=== PATIENT | male | born 1975 | race Caucasian/White ===

== ENCOUNTER → 2019-04-13 12:42 | Outpatient (CLI) | payer BC, SELFPAY ==
[2016-12-29 03:25] VITALS: BMI 33.7
[2019-04-13 13:30] LABS: Amphetamine Urine VISTA NEGATIVE (<1000 ng/mL); Barbiturate Urine VISTA NEGATIVE (< 200 ng/mL); Benzodiazepine Urine VISTA NEGATIVE (< 200 ng/mL); Cocaine Urine VISTA NEGATIVE (< 300 ng/mL); Ecstacy Urine VISTA NEGATIVE (< 500 ng/mL); Methadone Urine VISTA NEGATIVE (< 300 ng/mL); PCP Urine VISTA NEGATIVE (< 25 ng/mL); THC Urine VISTA NEGATIVE (< 50 ng/mL); Vista UDS pH Range 5
== END ==
LOC: LAB 12:45
PROVIDERS: PCP Family Medicine; Referring Provider Anesthesiology Pain Medicine; Visit Provider Anesthesiology Pain Medicine
DX: F11.20 Opioid dependence, uncomplicated (principal)
CPT/HCPCS: 80307

== ENCOUNTER → 2019-04-20 | Outpatient (CLI) | payer BC, SELFPAY ==
--- NOTE | 2019-04-20 09:14 | MRI_ITS ---
STUDY: MRI LUMBAR SPINE WITHOUT CONTRAST REASON FOR EXAM: Male, 43 years old. LOWER BACK PAIN,rt leg numbness, hx 2 prior surgeries TECHNIQUE: Standardized fat and water weighted pulse sequences were obtained in the sagittal and axial planes. COMPARISON: X-ray dated January 27, [address] scan dated August 11, 2013 of the abdomen FINDINGS: Lumbar straightening. No significant scoliosis. Conus medullaris terminates normally at the T12-L1 level. Last intervertebral disc will be labeled L5-S1. No acute fracture. No dislocation. No bone destruction. Normal paraspinal muscles. Normal aorta. Normal retroperitoneum. Sacrum intact. Postsurgical scarring. T12-L1: Normal endplates. Normal disc height, hydration and morphology. Normal bilateral facet joints. Normal central canal and bilateral lateral recesses. Normal bilateral intervertebral neural foramina. L1-2: Normal endplates. Normal disc height, hydration and morphology. Normal bilateral facet joints. Normal central canal and bilateral lateral recesses. Normal bilateral intervertebral neural foramina. L2-3: Normal endplates. Minimal disc desiccation. Normal bilateral facet joints. Normal central canal and bilateral lateral recesses. Normal bilateral intervertebral neural foramina. L3-4: Mild endplate spondylosis. Disc bulge, right paracentral disc protrusion, with moderate central canal narrowing. Facet joint arthrosis. Bilateral lateral recess narrowing with impingement on the right. Mild neural foraminal narrowing without impingement. L4-5: Moderate endplate spondylosis. Recurrent right paracentral/foraminal disc protrusion versus scarring with mild central canal narrowing. Facet joint arthrosis. Right lateral recess narrowing with impingement. Mild neural foraminal narrowing without impingement. Laminectomy. L5-S1: Mild endplate spondylosis. Left paracentral caudal disc extrusion (axial images 2 and 3 series 5) with moderate/severe central canal narrowing. Left lateral recess narrowing with impingement. Herniated disc material measures approximately 21 mm x 13 mm x 12 mm. Facet joint arthrosis. Mild neural foraminal narrowing without impingement. 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
== END | disposition home or self-care (01) ==
PROVIDERS: PCP Family Medicine; Referring Provider Anesthesiology Pain Medicine; Visit Provider Anesthesiology Pain Medicine
DX: M54.9 Dorsalgia, unspecified (principal); M79.606 Pain in leg, unspecified
CPT/HCPCS: 72148

== ENCOUNTER → 2019-09-08 | Outpatient (CLI) | payer BC, SELFPAY ==
[2019-09-08 08:40] VITALS: BMI 33.7
--- NOTE | 2019-09-08 08:42 | RAD_ITS ---
STUDY: X-RAY - LUMBAR SPINE REASON FOR EXAM: Male, 44 years old. LOWER BACK PAIN NKI, PREV HX BACK SURGERIES TECHNIQUE: 4 view(s) of the lumbar spine were obtained. COMPARISON: 2011 FINDINGS: There is straightening of the normal lumbar lordosis. There is no substantial scoliosis. There is a normal alignment of the vertebrae. Normal vertebral bodies and endplates. Disc spaces are well preserved in the upper lumbar spine however there is degenerative narrowing at L4-5 and L5/S1. There is no demonstrated fracture. No evidence of instability on the flexion or extension views The soft tissue structures are unremarkable. RAD/L/S Spine Min 4 Views IMPRESSION: Degenerative changes at L4-5 and L5/S1. No demonstrated fracture No instability Electronically Signed: Adolph Smith MD at 9:07 EDT , Service support ,
== END | disposition home or self-care (01) ==
LOC: HPRAD 08:42
PROVIDERS: PCP Family Medicine; Referring Provider Orthopaedic Surgery; Visit Provider Orthopaedic Surgery
DX: M54.5 Low back pain (principal)
CPT/HCPCS: 72110

== ENCOUNTER → 2020-04-13 06:04 | Outpatient (CLI) | payer BC, SELFPAY ==
[2019-09-08 08:42] VITALS: BMI 35.9
--- NOTE | 2020-04-13 11:06 | NEURO_ITS ---
NCS and/or EMG Patient Report Ordering Doctor: Gricelda Matthew DATE OF SERVICE: 04/13/20 Rickey Guthrie is a 44-year-old male with a history of low back and right lower extremity pain. He presents for electrodiagnostic testing. He wishes to have only the right side tested, stating he is only symptomatic on that side. He d oes report a significant improvement in back and leg pain over the past month. Electrodiagnostic findings: Right peroneal motor nerve demonstrates normal distal latency with and normal conduction velocity. Normal right peroneal motor amplitude is noted when measured at the tibialis anterior. Right tibial motor responses within normal limits. Borderline prolonged right sural latency. Normal right superficial peroneal response. Prolonged right peroneal F wave. H reflex prolonged bilaterally. Electrodiagnostic impression: This is an abnormal study in the right lower limb. 1. There are prolonged H reflex is in a borderline prolonged sural latency which may be suggestive of some early development of neuropathy. 2. There is no electrodiagnostic evidence for lumbosacral radiculopathy. If there are any further questions, please do not hesitate to contact me
== END ==
LOC: PSN 06:07
PROVIDERS: PCP Family Medicine; Referring Provider Anesthesiology Pain Medicine; Visit Provider Anesthesiology Pain Medicine
DX: M54.16 Radiculopathy, lumbar region (principal)
CPT/HCPCS: 95886; 95910

== ENCOUNTER 2022-11-20 15:30 | Emergency (ER) | payer OTHER, SELFPAY ==
[2022-11-20 15:31] VITALS: BP 133/90; PULSE 80; RESP 16; TEMP 36.1; O2SAT 97; BMI 34.4
[2022-11-20 15:51] LABS: Absolute Lymphocyte Count 2.72 X10^3/uL (0.83-4.51); Absolute Neutrophil Count 6.7 X10^3/uL (2.0-7.7); Basophil# 0.08 X10^3/uL; Basophil% 0.7 % (0-1); Eosinophil# 0.52 X10^3/uL; Eosinophils% 4.8 % (0-5); Hemoglobin 17.5 g/dL (13.0-16.5); Lymphocyte # 2.72 X10^3/ul (0.83-4.51); Lymphocyte % 25.1 % (19-41); Mean Corp Hgb Conc 35.7 g/dL (32-36); Mean Corpuscular Hgb 34.4 pg (27.0-32.0); Mean Corpuscular Volume 96.3 fL (80-94); Mean Platelet Vol. 10.6 fl (6.2-12.0); Monocyte# 0.75 X10^3/uL; Monocyte% 6.9 % (0-10); NRBC Flagged by Analyzer 0 % (0-5); Neutrophil # 6.73 X10^3/uL (2.7-7.7); Platelet Count 243 K/mm3 (150-450); RBC Distribution Width CV 12.2 % (11.6-14.6); RBC Distribution Width SD 43.1 fl (35.1-43.9); Red Blood Count 5.09 M/mm3 (4.6-6.2); White Blood Count 10.9 K/mm3 (4.4-11.0)
[2022-11-20 16:11] LABS: Bacteria 0 SEEN /hpf (None Seen); Mucous, Urine 0 SEEN /hpf (<or=2+); Red Blood Cells-Urine 0 SEEN /hpf (0-5); Squamous Epithelial Cells - UA 0 SEEN /hpf (0-5); White Blood Cells 0 SEEN /hpf (0-5)
[2022-11-20 16:18] LABS: Anion Gap 11 (5-15); BUN 13 mg/dL (7-18); Calcium,Total 9.6 mg/dL (8.5-10.1); Chloride 103 mmol/L (98-107); Creatinine, Serum 1.08 mg/dL (0.70-1.30); EST Glomerular Filtration Rate 78 mL/min (>60); Est Glom Filt Rate - Afr Amer 95 mL/min (>60); Estimated Creatinine Clearance 99.37 ml/min; Glucose 155 mg/dL (74-106); Sodium Level 136 mmol/L (136-145)
--- NOTE | 2022-11-20 16:28 | CT_ITS ---
INDICATION: LEFT FLANK PAIN EXAMINATION: CT ABDOMEN AND PELVIS WITHOUT CONTRAST - CT Abdomen And Pelvis W/O Contrast Injection TECHNIQUE: Helically acquired images were obtained of the abdomen and pelvis without oral or IV contrast. A radiation dose optimization technique was used for this scan. IV Contrast dosage and agent: None. Oral contrast: None. COMPARISON: 08/11/2013 FINDINGS: LOWER CHEST: Lung bases are clear. No cardiomegaly or pericardial effusion. LIVER: Diffuse low-attenuation consistent with steatosis. No focal mass. GALLBLADDER AND BILIARY TREE: No calcified gallstones. No gallbladder distension or wall edema. No intra- or extrahepatic biliary ductal dilation. PANCREAS: No focal cystic or solid mass. SPLEEN: Normal size without focal cystic or solid mass. ADRENAL GLANDS: No nodules. KIDNEYS AND URETERS: Nonobstructing right nephrolithiasis. No hydronephrosis. PERITONEUM: No ascites or free air. BOWEL: Normal appendix. No stomach or bowel distension. No focal inflammatory change. Diffusely increased colonic fecal burden. LYMPH NODES: No enlarged mesenteric or retroperitoneal lymph nodes. VESSELS: Aorta is non-dilated. URINARY BLADDER: Unremarkable. REPRODUCTIVE ORGANS: No pelvic masses. ABDOMINAL WALL: Small fat-containing bilateral inguinal hernias. BONES: No acute or aggressive abnormality. CT/Abdomen/Pelvis without Cont IMPRESSION: No acute findings in the abdomen or pelvis. No evidence of obstructive uropathy. Colonic fecal burden consistent with clinical constipation. Electronically Signed: Levi House MD at 17:11 EDT ,
--- NOTE | 2022-11-20 16:32 | EDS_ITS ---
HPI HPI - Female History of Present Illness Chief Complaint: Flank Pain Narrative Narrative: Patient presents with me about 6 or 7 hours of left flank pain that started while he was driving. Pain is somewhat colicky sharp and stabbing. No abdominal pain or radiation to the groin. No history of kidney stones in the past. [facility] Medical History (Updated 11/20/22 @ 16:06 by Ann Marie Giordano) Asthma Home Medications atenolol 25 mg tablet 50 mg PO DAILY 08/11/13 [History Last Taken 08/11/13] atorvastatin 20 mg tablet 20 mg PO DAILY 12/29/16 [History Last Taken Unknown] metformin 1,000 mg tablet 1,000 mg PO BID 12/29/16 [History Last Taken Unknown] naproxen 500 mg tablet 500 mg PO BID PRN PRN Pain #20 tabs 12/29/16 [Rx Last Taken Unknown] naproxen 500 mg tablet (Naprosyn) 500 mg PO BID PRN pain #20 tabs 11/20/22 [Rx Last Taken Unknown] polyethylene glycol 3350 17 gram/dose oral powder (Miralax) 17 g PO BID #119 gr ams 11/20/22 [Rx Last Taken Unknown] tizanidine 4 mg tablet 4 mg PO Q8H PRN muscle spasticity #14 tabs 11/20/22 [Rx Last Taken Unknown] Allergy/AdvReac Type Severity Reaction Status Date / Time No Known Allergies Allergy Verified 09/08/19 08:43 Social History (Updated 09/08/19 @ 12:[address] Kassandra Dasilva MD) Smoking Status: Former smoker ROS ROS ED ROS Narrative Past medical history: Reviewed Medications: Reviewed Social history: Noncontributory Review of systems: All systems negative except as indicated General: No fever Eyes: No visual changes Cardiovascular: No chest pain Respiratory: No shortness of breath or cough Gastrointestinal: No abdominal pain, nausea vomiting or diarrhea Genitourinary: No dysuria Musculoskeletal: Denies myalgias no difficulty with ambulation Skin: No rash Back: Flank pain as in HPI Neurological: No memory loss, confusion or any focal weakness Hematologic: No easy bleeding or easy bruising EXAM Physical Exam Narrative Exam Narrative: Physical exam General: Patient appears uncomfortable. He is pacing around the room. Head: Normocephalic, Atraumatic Eyes: Conjunctiva not pale ENT: Moist mucous membranes Neck: Supple, Nontender, No lymphadenopathy Cardiovascular: Regular rate, Regular rhythm Respiratory: No distress, CTA bilaterally Abdomen: Soft, Nontender, Nondistended Back: Nontender, Normal Inspection. Left-sided CVA tenderness but will reproduce. Extremities: Nontender, No edema Skin: Normal color, No rash Neurological: Alert, Normal Strength, Normal Sensation Const Vital Signs: 11/20/22 15:31 11/20/22 17:22 Temperature 96.9 F L Temperature Source Temporal Pulse Rate 80 76 Respiratory Rate 16 16 Blood Pressure 133/90 H 116/65 Blood Pressure Mean 104 82 Pulse Ox 97 97 Oxygen Delivery Method Room Air Room Air MDM MDM MDM Narrative Medical decision making narrative: Patient has an unremarkable work-up, I went to reevaluated him, he does have some pain in his CVA region paraspinal muscle region so this may all be musculoskeletal, initially did did have quite a bit of flank pain and will reproduce therefore a work-up was done for kidney stone. At this time there is no radicular symptoms therefore I do not believe there is needs to be steroids. Patient is found to have constipation I am not sure if this would cause flank pain usually causes abdominal pain and rectal pain. Regardless I will treat him with muscle relaxants and NSAIDs for his back as well as MiraLAX for his constipation. I will refer him to spine surgery since he has had 2 prior spine surgeries and wants to make sure this is not discogenic. Regardless at this time there is no red flags for cauda equina. Lab Data Labs: Laboratory Results - last 24 hr 11/20/22 11/20/22 15:40 16:05 WBC 10.9 RBC 5.09 Hgb 17.5 H Hct 49.0 MCV 96.3 H MCH 34.4 H MCHC 35.7 RDW Std Deviation 43.1 RDW Coeff of Suzi 12.2 Plt Count 243 MPV 10.6 Immature Gran % (Auto) 0.500 Neut % (Auto) 62.0 Lymph % (Auto) 25.1 [place] % (Auto) 6.9 Eos % (Auto) 4.8 Baso % (Auto) 0.7 Absolute Neuts (auto) 6.7 Absolute Lymphs (auto) 2.72 Nucleated RBC % 0 Sodium 136 Potassium 4.0 Chloride 103 Carbon Dioxide 22.0 Anion Gap 11 BUN 13 Creatinine 1.08 Estim Creat Clear Calc 99.37 Est GFR (MDRD) Af Amer 95 Est GFR (MDRD) Non-Af 78 BUN/Creatinine Ratio 12.0 Glucose 155 H Calcium 9.6 Urine Color Yellow Urine Clarity Clear Urine pH 5.0 Ur Specific [place] 1.020 Urine Protein Negative Urine Glucose (UA) 1000 H Urine Ketones 5 H Urine Occult Blood Negative Urine Nitrite Negative Urine Bilirubin Negative Urine Urobilinogen Normal Ur Leukocyte Esterase Negative Urine RBC 0 SEEN Urine WBC 0 SEEN Ur Squamous Epith Cells 0 SEEN Urine Bacteria 0 SEEN Urine Mucus 0 SEEN Radiography Diagnostic Testing: Clinical Impression(s) from Imaging Studies Abdomen/Pelvis CT 11/20/22 16:28 IMPRESSION: No acute findings in the abdomen or pelvis. No evidence of obstructive uropathy. Colonic fecal burden consistent with clinical constipation. Electronically Signed: Levi House MD at 17:11 EDT Reading Location ID and State: [address] [place] [address] Tel , Service support , Discharge Plan Triage Chief Complaint: Flank Pain ED Provider: Omar Todd Dx/Rx/DC Orders Prescriptions: New polyethylene glycol 3350 [Miralax] 17 gram/dose powder 17 g PO BID Qty: 119 0RF tizanidine 4 mg tablet 4 mg PO Q8H PRN (Reason: muscle spasticity) Qty: 14 0RF naproxen [Naprosyn] 500 mg tablet 500 mg PO BID PRN (Reason: pain) Qty: 20 0RF No Action atenolol 25 MG tablet 50 mg PO DAILY atorvastatin 20 MG tablet 20 mg PO DAILY metformin 1,000 MG tablet 1,000 mg PO BID naproxen 500 MG tablet 500 mg PO BID PRN PRN (Reason: Pain) Qty: 20 0RF Stand Alone Forms: ED Work / School Excuse Primary Care Provider: Isaac Tucker Referrals: Holger Perla DO [Med Staff - Active Staff] - 3-5 Days Isaac Tucker MD [Primary Care Provider] -
[2022-11-20 16:35] LABS: Color, Urine Yellow (Yellow); Glucose, Dipstick 1000 mg/dl (Normal); Ketone-Dipstick 5 mg/dl (Negative); Leukocyte Esterase-Dipstick Negative /ul (Negative); Nitrite-Dipstick Negative (Negative); Occult Blood-Urine Negative /ul (Negative); Protein-Dipstick Negative (Negative); Urine Bilirubin Dipstick Negative (Negative); Urine Clarity Clear (Clear); Urine Urobilinogen Normal (Normal)
[2022-11-20] MEDS: 0.9% Normal Saline 1,000 ML 999 ML IV (16:54)
[2022-11-20] MEDS: Ondansetron 4 MG/2 ML Vial IV (16:54)
[2022-11-20] MEDS: Morphine 4 MG/ML Syringe IV (16:54)
[2022-11-20] MEDS: Ketorolac 15 MG/ML Vial IV (16:54)
[2022-11-20 17:22] VITALS: BP 116/65; PULSE 76; RESP 16; O2SAT 97
[2022-11-20 17:58] VITALS: BP 140/87; PULSE 89; RESP 16; O2SAT 99
== END 2022-11-20 17:59 | disposition home or self-care (01) ==
PROVIDERS: Emergency Provider Emergency Medicine; PCP Family Medicine; Visit Provider Emergency Medicine
DX: R10.9 Unspecified abdominal pain (principal); Z87.891 Personal history of nicotine dependence; J45.909 Unspecified asthma, uncomplicated; K59.00 Constipation, unspecified
CPT/HCPCS: 74176; 80048; 81001; 85025; 96361; 96374; 96375; 99283; J7030; A4216; J2405